=== PATIENT | male | born 1995 | race Caucasian/White ===

== ENCOUNTER 2017-05-04 15:32 | Emergency (ER) | payer MEDICAID ==
[~2017-05-04] VITALS: Ht 170.2 cm; Wt 64.4 kg
[2017-05-04 17:36] LABS: BASOPHIL % 0.1 % (0-2); PLATELET COUNT 274 x10^3mcL (130-400); RED CELL DISTRIBUTION WIDTH 13.9 % (11.5-14.5)
[2017-05-04 17:48] LABS: CALCIUM 8.9 mg/dL (8.5-10.1); CARBON DIOXIDE 24.3 mmol/L (21-32); CHLORIDE SERUM 104 mmol/L (98-107); GFR1 > 60 mL/min; GLUCOSE SERUM 81 mg/dL (74-106); POTASSIUM SERUM 3.4 mmol/L (3.5-5.1); SODIUM SERUM 143 mmol/L (136-145)
[2017-05-04 21:29] VITALS: BP 117/71
== END 2017-05-04 21:29 | disposition home or self-care (01) ==
LOC: ED 15:32
PROVIDERS: Emergency Medicine
DX: S20.211A Contusion of right front wall of thorax, initial encounter (principal); S30.1XXA Contusion of abdominal wall, initial encounter; T14.90 Injury, unspecified; Y93.66 Activity, soccer; Y99.8 Other external cause status; Y92.89 Other specified places as the place of occurrence of the external cause
CPT/HCPCS: J2270; J2405; Q9967

== ENCOUNTER 2017-10-25 22:02 | Emergency (ER) | payer SELFPAY ==
[~2017-10-25] VITALS: Ht 170.2 cm; Wt 75.7 kg
[2017-10-25 22:09] VITALS: Ht 170.2 cm; Wt 75.7 kg
[2017-10-26 00:02] VITALS: BP 113/71
== END 2017-10-26 00:02 | disposition home or self-care (01) ==
LOC: ED 22:02
DX: B34.9 Viral infection, unspecified (principal)

== ENCOUNTER 2018-05-18 17:06 | Emergency (ER) | payer OTHER ==
[~2018-05-18] VITALS: Ht 170.2 cm; Wt 68.0 kg
[2018-05-18 17:25] VITALS: Ht 170.2 cm; Wt 68.0 kg
[2018-05-18 20:30] VITALS: BP 123/89
== END 2018-05-18 20:30 | disposition home or self-care (01) ==
LOC: ED 17:06
DX: S60.221A Contusion of right hand, initial encounter (principal); W17.89XA Other fall from one level to another, initial encounter; Y93.11 Activity, swimming; Y92.89 Other specified places as the place of occurrence of the external cause; Y99.8 Other external cause status
CPT/HCPCS: A4570

== ENCOUNTER 2018-09-01 17:56 | Emergency (ER) | payer OTHER ==
[~2018-09-01] VITALS: Ht 175.3 cm; Wt 70.3 kg
[2018-09-01 17:57] VITALS: Ht 175.3 cm; Wt 70.3 kg
[2018-09-01 18:35] LABS: PLATELET COUNT 308 x10^3mcL (130-400); RED CELL DISTRIBUTION WIDTH 12.6 % (11.5-14.5)
[2018-09-01 18:44] LABS: CARBON DIOXIDE 29.5 mmol/L (21-32); CHLORIDE SERUM 102 mmol/L (98-107); CREATININE SERUM 0.9 mg/dL (0.7-1.3); GFR1 > 60 mL/min; GLUCOSE SERUM 104 mg/dL (74-106); POTASSIUM SERUM 4.5 mmol/L (3.5-5.1); SODIUM SERUM 141 mmol/L (136-145)
[2018-09-01 20:35] VITALS: BP 136/71
== END 2018-09-01 20:30 | disposition home or self-care (01) ==
LOC: ED 17:56
PROVIDERS: Emergency Medicine
DX: R58 Hemorrhage, not elsewhere classified (principal); K08.409 Partial loss of teeth, unspecified cause, unspecified class; R13.10 Dysphagia, unspecified; G43.909 Migraine, unspecified, not intractable, without status migrainosus
CPT/HCPCS: J1100; Q9967

== ENCOUNTER 2019-07-20 22:49 | Emergency (ER) | payer OTHER ==
[~2019-07-20] VITALS: Ht 170.2 cm; Wt 70.8 kg
[2019-07-20 23:04] VITALS: Ht 170.2 cm; Wt 70.8 kg
[2019-07-21 00:22] VITALS: BP 136/91
== END 2019-07-21 00:22 | disposition home or self-care (01) ==
LOC: ED 22:49
DX: J03.90 Acute tonsillitis, unspecified (principal); R21 Rash and other nonspecific skin eruption; G43.909 Migraine, unspecified, not intractable, without status migrainosus
CPT/HCPCS: J0696; J7512